=== PATIENT | female | born 1990 | race Caucasian/White ===

== ENCOUNTER → 2018-05-24 11:51 | Outpatient (REF) | payer MEDICAID, SELFPAY ==
[2018-05-24 18:09] LABS: Basophils % 0.5 % (0.1-2.0); Eosinophils # 0.2 K/mm3 (0.0-0.4); Eosinophils % 3.3 % (0.1-12.0); Hematocrit 38.8 % (37.0-47.0); Hemoglobin 12.4 g/dL (12.2-16.2); Lymphocytes % 15.4 K/mm3 (10-50); Mean Corpuscular HGB Conc 31.9 g/dL (31.8-35.4); Mean Corpuscular Volume 100.3 fl (81-99); Mean Platelet Volume 9.2 fl (7.4-10.4); Monocytes # 0.4 K/mm3 (0.1-1.0); Neutrophils # 5.1 K/mm3 (1.8-7.8); Neutrophils % 74.8 % (37.0-80.0); Platelet Count 175 K/mm3 (142-424); Red Blood Count 3.87 M/mm3 (4.20-5.40); Red Cell Distribution Width 12.9 % (11.5-17.5); White Blood Count 6.8 K/mm3 (4.8-10.8)
[2018-05-24 18:48] LABS: Alanine Aminotransferase 20 U/L (12-78); Albumin Level 4.4 gm/dL (3.4-5.0); Albumin/Globulin Ratio 1.6 (1.1-1.8); Alkaline Phosphatase 56 U/L (46-116); Anion Gap 16.7 mEq/L (5-15); Aspartate Amino Transferase 7 U/L (15-37); Bilirubin,Total 0.3 mg/dL (0.2-1.0); Blood Urea Nitrogen 13 mg/dL (7-18); Calcium 9.3 mg/dL (8.5-10.1); Carbon Dioxide 21 mmol/L (21.0-32.0); Chloride 110 mmol/L (98-107); Creatinine,Serum 0.82 mg/dL (0.55-1.02); Estimated Glomerular Filt Rate 82 ml/min (>60); GFR (African American) 100 ML/MIN (>60); Globulin 2.8 gm/dl (1.3-3.2); Glucose 70 mg/dL (74-106); Potassium 3.7 mmoL/L (3.5-5.1); Sodium 144 mmol/L (136-145); T4 (Thyroxine) 7.4 ug/dl (4.7-13.3); Thyroid Stimulating Hormone 2.13 uIU/ml (0.358-3.740); Total Protein,Serum 7.2 gm/dL (6.4-8.2)
[2018-05-24 19:19] LABS: Hemoglobin A1C 4.6 % (0.0-7.0)
[2018-05-27 06:35] LABS: Vitamin D 25 Hydroxy 76.7 ng/mL (30.0-100.0)
== END ==
LOC: LAB 11:51
PROVIDERS: Visit Provider Physician Assistant
DX: F32.9 Major depressive disorder, single episode, unspecified (principal); E55.9 Vitamin D deficiency, unspecified; E11.9 Type 2 diabetes mellitus without complications
CPT/HCPCS: 80053; 82652; 83036; 84436; 84443; 85025

== ENCOUNTER → 2018-11-29 13:31 | Outpatient (CLI) | payer MEDICAID, SELFPAY ==
[2018-11-29 14:34] LABS: Amphetamine/Metha Screen,Urine Negative ng/mL (<1000); Barbiturates Screen,Urine Negative ng/mL (<200); Benzodiazepines Screen,Urine Negative ng/mL (<200); Cannabinoid Screen,Urine Negative ng/mL (<50); Cocaine Screen,Urine Negative ng/mL (<300); Methadone Screen,Urine Negative ng/mL (<300); Opiate Screen,Urine Negative ng/mL (<300); Phencyclidine Screen,Urine Negative ng/mL (<25)
== END ==
PROVIDERS: Visit Provider Nurse Practitioner Family
DX: Z79.899 Other long term (current) drug therapy (principal)
CPT/HCPCS: 80305

== ENCOUNTER → 2020-03-28 16:44 | Outpatient (CLI) | payer MEDICAID, SELFPAY | PROVIDERS: Visit Provider Urology | DX: B37.49 Other urogenital candidiasis (principal) | CPT/HCPCS: 87086; 87088; 87186 ==

== ENCOUNTER → 2020-05-02 16:58 | Outpatient (CLI) | payer MEDICAID, SELFPAY ==
[2020-05-02 17:25] LABS: Basophils % 0.5 % (0.1-2.0); Eosinophils # 0.2 K/mm3 (0.0-0.4); Eosinophils % 2.1 % (0.1-12.0); Hemoglobin 13.9 g/dL (12.2-16.2); Lymphocytes # 1.5 K/mm3 (0.7-4.5); Lymphocytes % 19.5 % (10-50); Mean Corpuscular HGB Conc 34.7 g/dL (31.8-35.4); Mean Corpuscular Hemoglobin 33.1 pg (27.0-31.2); Mean Corpuscular Volume 95.4 fl (81-99); Monocytes # 0.3 K/mm3 (0.1-1.0); Monocytes % 4.6 % (1.7-9.3); Neutrophils # 5.5 K/mm3 (1.8-7.8); Neutrophils % 73.3 % (37.0-80.0); Platelet Count 182 K/mm3 (142-424); Red Blood Count 4.19 M/mm3 (4.20-5.40); Red Cell Distribution Width 12.6 % (11.5-17.5); White Blood Count 7.5 K/mm3 (4.8-10.8)
[2020-05-02 17:31] LABS: Chloride 110 mmol/L (98-107); Potassium 3.9 mmoL/L (3.5-5.1); Sodium 136 mmol/L (136-145)
[2020-05-02 17:34] LABS: Alanine Aminotransferase 12 U/L (12-78); Albumin Level 4.2 g/dl (3.5-5.0); Albumin/Globulin Ratio 1.7 (1.1-1.8); Alkaline Phosphatase 47 U/L (38-126); Anion Gap 11.9 mEq/L (5-15); Aspartate Amino Transferase 24 U/L (14-36); Bilirubin,Total 0.6 mg/dl (0.2-1.3); Blood Urea Nitrogen 12 mg/dl (7-17); Carbon Dioxide 18 mmol/L (22.0-30.0); Cholesterol 118 mg/dl (140-200); Estimated Glomerular Filt Rate 84 ml/min (>60); GFR (African American) 101 ML/MIN (>60); Globulin 2.5 g/dL (1.3-3.2); Total Protein,Serum 6.7 g/dl (6.3-8.2); Triglycerides 40 mg/dl (30-150); VLDL Cholesterol 8 mg/dL (0-40)
[2020-05-02 17:35] LABS: Calcium 9.1 mg/dl (8.4-10.2); Chol/HDL Ratio 2.2 (1-3.5); Glucose 96 mg/dl (74-100); HDL Cholesterol 53 mg/dl (40-60)
[2020-05-02 17:45] LABS: Direct LDL Cholesterol 59.75 mg/dL (100-129)
[2020-05-02 17:52] LABS: T4 (Thyroxine) 7.7 ug/dl (5.53-11.0)
[2020-05-02 18:05] LABS: Thyroid Stimulating Hormone 1.46 uIU/mL (0.465-4.68)
[2020-05-02 19:13] LABS: Hemoglobin A1C 4.9 % (4.0-6.0)
== END ==
PROVIDERS: Visit Provider Physician Assistant
DX: R73.9 Hyperglycemia, unspecified (principal)
CPT/HCPCS: 80053; 80061; 83036; 84436; 84443; 85025

== ENCOUNTER → 2020-11-14 14:23 | Outpatient (CLI) | payer MEDICAID, SELFPAY ==
--- NOTE | 2020-11-14 14:23 | US_ITS ---
PROCEDURE: US TRANSVAGINAL CLINICAL INDICATION: US T/V- DUB Excessive bleeding COMPARISON: No exams were available for comparison FINDINGS: UTERUS: 8cm x 5cmx 4cm with a combined endometrial thickness of 10.6mm LEFT OVARY: [id number] with a volume of 7ml. RIGHT OVARY: [id number] with a volume of 14.4ml. There are nabothian cyst present. There is a small complex cyst within the right ovary 15 x 11 mm which is somewhat irregular with low level echoes. Possibly due to a hemorrhagic cyst. IMPRESSION: 15 mm complex right ovarian cyst. Endometrial stripe upper limits of normal otherwise negative pelvic ultrasound. Dictated by: Ole Cornejo MD 11/14/2020 17:49 Ole Cornejo MD in [facility] 11/14/2020 17:49
--- NOTE | 2020-11-14 14:23 | XR_ITS ---
PROCEDURE: XR DEXA AXIAL SKELETON CLINICAL HISTORY: Dexa Scan- osteopenia COMPARISON: CR BONE3 BONE DENSITOMETRY(HIP:LT SPINE from 02/25/2017 FINDINGS: The right hip BMD is 0.731 with a T-score of -1.7. The left hip BMD is 0.693 with a T-score of -2.0. The lumbar spine BMD is 0.776 with a T-score of -2.5. Previously the lowest bone density was in the AP spine with a T-score -1.8. IMPRESSION: This patient is considered osteoporotic according to the World Health Organization criteria. Fracture risk is high. Treatment is advised. The bone density has decreased compared to the previous exam Based on these results a follow-up exam is recommended in 1 year. Dictated by: Ole Cornejo MD 11/15/2020 11:01 Ole Cornejo MD in [facility] 11/15/2020 11:01
== END ==
PROVIDERS: PCP Emergency Medicine; Visit Provider Obstetrics & Gynecology
DX: N93.8 Other specified abnormal uterine and vaginal bleeding (principal); M85.89 Other specified disorders of bone density and structure, multiple sites
CPT/HCPCS: 76830; 77080

== ENCOUNTER → 2020-12-24 10:36 | Outpatient (CLI) | payer MEDICAID, SELFPAY ==
[2020-12-24 12:07] LABS: HCG,Quantitative 2516 mIU/ml (0-5.42)
== END ==
PROVIDERS: Visit Provider Obstetrics & Gynecology
DX: Z34.90 Encounter for supervision of normal pregnancy, unspecified, unspecified trimester (principal)
CPT/HCPCS: 36415; 84702

== ENCOUNTER → 2020-12-26 12:35 | Outpatient (CLI) | payer MEDICAID, SELFPAY ==
[2020-12-26 13:44] LABS: HCG,Quantitative 6741 mIU/ml (0-5.42)
== END ==
PROVIDERS: Visit Provider Obstetrics & Gynecology
DX: Z34.90 Encounter for supervision of normal pregnancy, unspecified, unspecified trimester (principal)
CPT/HCPCS: 36415; 84702

== ENCOUNTER → 2021-01-14 13:01 | Outpatient (CLI) | payer MEDICAID, SELFPAY ==
--- NOTE | 2021-01-14 13:02 | US_ITS ---
PROCEDURE: US OB <= 14 WEEKS FETUS CLINICAL INDICATION: dates COMPARISON: No exams were available for comparison FINDINGS: An intrauterine gestational sac is present with a pole with a crown-rump length of 1.38cm correlating to gestational age of 7weeks 5days. heart tones are present with an FHR of 161bpm. Yolk sac is noted. 2 cm right ovarian corpus luteum noted. IMPRESSION: Live IUP at 7 weeks 5 days Estimated due date by Ultrasound is 08/28/2021 Dictated by: Ole Cornejo MD 01/15/2021 19:04 Ole Cornejo MD in [facility] 01/15/2021 19:04
== END ==
PROVIDERS: PCP Emergency Medicine; Visit Provider Obstetrics & Gynecology
DX: Z34.90 Encounter for supervision of normal pregnancy, unspecified, unspecified trimester (principal)
CPT/HCPCS: 76801

== ENCOUNTER → 2021-01-16 11:59 | Outpatient (CLI) | payer MEDICAID, SELFPAY ==
[2021-01-16 12:39] LABS: Basophils % 0.4 % (0.1-2.0); Eosinophils # 0.1 K/mm3 (0.0-0.4); Eosinophils % 1.6 % (0.1-12.0); Hemoglobin 13.1 g/dL (12.2-16.2); Lymphocytes # 1.1 K/mm3 (0.7-4.5); Lymphocytes % 13.7 % (10-50); Mean Corpuscular HGB Conc 33.5 g/dL (31.8-35.4); Mean Corpuscular Hemoglobin 31.1 pg (27.0-31.2); Mean Corpuscular Volume 92.9 fl (81-99); Mean Platelet Volume 8.4 fl (7.4-10.4); Monocytes # 0.5 K/mm3 (0.1-1.0); Monocytes % 5.9 % (1.7-9.3); Neutrophils # 6.5 K/mm3 (1.8-7.8); Neutrophils % 78.4 % (37.0-80.0); Platelet Count 167 K/mm3 (142-424); Red Cell Distribution Width 12.4 % (11.5-17.5); White Blood Count 8.3 K/mm3 (4.8-10.8)
[2021-01-16 13:20] LABS: Blood Urea Nitrogen 7 mg/dl (7-17); Calcium 9.5 mg/dl (8.4-10.2); Carbon Dioxide 22 mmol/L (22.0-30.0); Chloride 106 mmol/L (98-107); Estimated Glomerular Filt Rate 97 ml/min (>60); GFR (African American) 117 ML/MIN (>60); Glucose 85 mg/dl (74-100); Sodium 138 mmol/L (136-145)
[2021-01-17 13:01] LABS: HIV Screen 4th Generation wRfx Non Reactive (Non Reactive); Hepatitis B Surface Antigen Negative (Negative); Hepatitis C Antibody <0.1 s/co ratio (0.0-0.9); Rubella Antibodies, IgG 2.84 index (Immune >0.99)
== END ==
PROVIDERS: Visit Provider Obstetrics & Gynecology
DX: Z34.90 Encounter for supervision of normal pregnancy, unspecified, unspecified trimester (principal)
CPT/HCPCS: 36415; 80048; 85025; 86703; 86762; 86850; 87340; 87380; G0432

== ENCOUNTER → 2021-04-10 12:49 | Outpatient (CLI) | payer MEDICAID, SELFPAY ==
--- NOTE | 2021-04-10 12:49 | US_ITS ---
PROCEDURE: US OB >= 14 WEEKS FETUS CLINICAL INDICATION: OB complete COMPARISON: US US OB <= 14 WEEKS FETUS from 01/14/2021 FINDINGS: There is a single live intrauterine gestation which is in breech presentation. heart and body motion is noted. Cervix is closed measuring 4 cm in length. The placenta is anterior in implantation and grade 1. Complete survey performed and was unremarkable on the submitted images as in PACS. No discrete anomalies identified on survey imaging by technologist. Active fetus. Three-vessel cord with satisfactory umbilical cord insertion. 4- chamber heart noted. Survey of brain & ventricles Unremarkable. Face and neck survey unremarkable. Diaphragm and chest views unremarkable. Abdomen: Both kidneys noted and unremarkable. Stomach noted and satisfactory. Spine: Survey of the spine satisfactory with no anomalies identified nor imaged. Both arms and legs noted. Amniotic Fluid: Adequate. Maternal adnexa: No significant findings. Measurements: Average ultrasound age 20weeks 4days. Gestational Age 20weeks Estimated due date by ultrasound age 1008/24/2021. Estimated weight 367g BPD = 20weeks 3days OFD = 21weeks HC = 20weeks AC = 21weeks 1day FL = 20weeks 3days Growth Percentile= 80Percent% Heart Rate = 155bpm Cerebellum = 20weeks 2days Humerus = 20weeks 4days HC/AC is 1.1 CI is 0.76 FL/BPD is 0.7 FL/AC is 0.21 IMPRESSION: Live IUP at 20 weeks 4 days in breech presentation. All parameters correlate with no obvious anomalies. Please see above for detail. Dictated by: Ole Cornejo MD 04/11/2021 08:57 Ole Cornejo MD in [facility] 04/11/2021 08:57
== END ==
PROVIDERS: PCP Emergency Medicine; Visit Provider Obstetrics & Gynecology
DX: Z34.90 Encounter for supervision of normal pregnancy, unspecified, unspecified trimester (principal)
CPT/HCPCS: 76805

== ENCOUNTER → 2021-05-23 09:57 | Outpatient (CLI) | payer MEDICAID, SELFPAY ==
[2021-05-23 10:52] LABS: Basophils % 0.6 % (0.1-2.0); Eosinophils # 0.1 K/mm3 (0.0-0.4); Eosinophils % 1.8 % (0.1-12.0); Hematocrit 34.7 % (37.0-47.0); Hemoglobin 11.9 g/dL (12.2-16.2); Lymphocytes # 1.2 K/mm3 (0.7-4.5); Lymphocytes % 16.9 % (10-50); Mean Corpuscular HGB Conc 34.4 g/dL (31.8-35.4); Mean Corpuscular Hemoglobin 32.2 pg (27.0-31.2); Mean Corpuscular Volume 93.7 fl (81-99); Mean Platelet Volume 8.2 fl (7.4-10.4); Monocytes # 0.4 K/mm3 (0.1-1.0); Monocytes % 5.2 % (1.7-9.3); Neutrophils # 5.5 K/mm3 (1.8-7.8); Neutrophils % 75.6 % (37.0-80.0); Platelet Count 167 K/mm3 (142-424); Red Cell Distribution Width 13.1 % (11.5-17.5); White Blood Count 7.3 K/mm3 (4.8-10.8)
[2021-05-23 10:59] LABS: Glucose,Fasting 90 mg/dl (74-100)
[2021-05-23 13:20] LABS: Glucose 1 Hour 122 mg/dL (74-100)
== END ==
PROVIDERS: Visit Provider Obstetrics & Gynecology
DX: Z34.90 Encounter for supervision of normal pregnancy, unspecified, unspecified trimester (principal)
CPT/HCPCS: 36415; 82951; 85025

== ENCOUNTER → 2021-06-12 12:05 | Outpatient (CLI) | payer MEDICAID, SELFPAY ==
[2021-06-13 11:14] LABS: Rapid Plasma Reagin Ab Titer Non Reactive (NonRea<1:1)
== END ==
PROVIDERS: Visit Provider Obstetrics & Gynecology
DX: Z34.90 Encounter for supervision of normal pregnancy, unspecified, unspecified trimester (principal)
CPT/HCPCS: 86592

== ENCOUNTER → 2021-07-25 15:08 | Outpatient (CLI) | payer MEDICAID, SELFPAY | PROVIDERS: Visit Provider Obstetrics & Gynecology | DX: Z34.90 Encounter for supervision of normal pregnancy, unspecified, unspecified trimester (principal) | CPT/HCPCS: 86403 ==

== ENCOUNTER → 2021-08-23 14:12 | Outpatient (CLI) | payer MEDICAID, SELFPAY | PROVIDERS: PCP Emergency Medicine; Visit Provider Obstetrics & Gynecology | DX: Z11.52 Encounter for screening for COVID-19 (principal) | CPT/HCPCS: C9803; U0003; U0005 ==

== ENCOUNTER 2021-08-25 05:03 | Inpatient (IN) | payer MEDICAID, SELFPAY ==
[2021-08-25 05:09] VITALS: BMI 24.4
[2021-08-25 06:18] VITALS: BP 102/73; PULSE 100; RESP 18; TEMP 36.7; O2SAT 98; BMI 24.4
[2021-08-25 06:32] LABS: Microscopic, Urine URINE MICROSCOPIC (MICROSCOPIC)
[2021-08-25 06:32] LABS: Coronavirus 19, PCR Not Detected (NotDetected); Influenza A, PCR Not Detected (NotDetected); Influenza B, PCR Not Detected (NotDetected)
[2021-08-25 06:44] LABS: Basophils % 0.4 % (0.1-2.0); Eosinophils # 0.1 K/mm3 (0.0-0.4); Eosinophils % 0.8 % (0.1-12.0); Hematocrit 31.7 % (37.0-47.0); Hemoglobin 10.5 g/dL (12.2-16.2); Lymphocytes # 1.3 K/mm3 (0.7-4.5); Lymphocytes % 16.2 % (10-50); Mean Corpuscular Hemoglobin 29.3 pg (27.0-31.2); Mean Corpuscular Volume 88.9 fl (81-99); Mean Platelet Volume 9.6 fl (7.4-10.4); Monocytes # 0.5 K/mm3 (0.1-1.0); Monocytes % 6.8 % (1.7-9.3); Neutrophils # 5.9 K/mm3 (1.8-7.8); Neutrophils % 75.8 % (37.0-80.0); Platelet Count 196 K/mm3 (142-424); Red Blood Count 3.57 M/mm3 (4.20-5.40); Red Cell Distribution Width 13.7 % (11.5-17.5); White Blood Count 7.8 K/mm3 (4.8-10.8)
[2021-08-25 07:06] LABS: Appearance,Urine CLEAR (Clear); Bilirubin,Urine Negative (Negative); Blood, Urine Negative (Negative); Color,Urine YELLOW (Yellow); Glucose,Urine (UA) Negative (Negative); Ketones,Urine Negative (Negative); Leukocyte Esterase,Urine 2+ (Negative); Nitrate,Urine Negative (Negative); PH,Urine 6.5 (5.0-8.5); Protein,Urine TRACE (Negative); Specific Gravity, Urine 1.025 (1.005-1.030); Urobilinogen,Urine 0.2 EU/dl (0.2)
[2021-08-25 07:18] LABS: Amphetamine/Metha Screen,Urine Negative ng/ml (<1000); Benzodiazepines Screen,Urine Negative ng/ml (<200)
[2021-08-25 07:19] LABS: Barbiturates Screen,Urine Negative ng/ml (<200); Methadone Screen,Urine Negative ng/ml (<300)
[2021-08-25 07:20] LABS: Cannabinoid Screen,Urine Negative ng/ml (<50)
[2021-08-25 07:21] LABS: Cocaine Screen,Urine Negative ng/ml (<300); Opiate Screen,Urine Negative ng/ml (<300)
[2021-08-25 07:22] LABS: Phencyclidine Screen,Urine Negative ng/ml (<25)
[2021-08-25 07:59] LABS: Amorphous Sediment,Urine 1+ /lpf
--- NOTE | 2021-08-25 09:18 | HMH.PHAINT ---
MEDICATION RECONCILIATION COMPLETE USING SURESCRIPTS AND PREVIOUS OFFICE VISIT
--- NOTE | 2021-08-25 10:21 | HMH.HP ---
*Admission Date: 08/25/21 *Chief complaint: Induction of labor *History of present illness: 31 yo @ 39 4/ admitted for induction of labor PMH complicated by paget's disease, osteoporosis, depression and mild anemia has been uneventful with good care + tobacco abuse [facility] History I have reviewed the patient's past medical history: Yes Medical History: Reports:: Asthma, Depression, Diabetes Mellitus Type 2, Hypertension, Osteoporosis *Have you ever received a pneumonia vaccine?: No *Have you received a flu vaccine this season?: No Other Medical History: Reports: Osteoporosis Laterality Cases: Bilateral: Tonsillectomy Other Surgeries: Yes: Hernia Repair. No: Amputation: No Fractures: Yes - *Social History Smoking Status: Current some day smoker Tobacco Type: e-cigarettes # Packs/Day (cigarettes): 2 Alcohol Intake: never Substance Use Type: denies use *Occupational Status:: employed Housing: apartment Household Members: family *Travel in the last 8 weeks: None - Psychiatric History Pschychiatric History:: Reports:: Depression Family Hx:: Cancer, Diabetes, Hypertension : 2 Para: 1 Review of Systems - Review of Systems Review of systems:: pertinent systems reviewed and negative unless documented below - *Genitourinary Denies abnormal vaginal bleeding - *Musculoskeletal Reports joint pain Meds Home Medications Medication Instructions Recorded Confirmed Type albuterol sulfate 90 mcg/actuation 2 puff INHALATION Q4H PRN g 12/07/17 08/25/21 History aerosol inhaler metoclopramide HCl 10 mg tablet 10 mg PO Q6H PRN #90 tab 02/27/21 08/25/21 Rx oxybutynin chloride 10 mg 10 mg PO DAILY 02/27/21 08/25/21 History tablet,extended release 24 hr Escitalopram Oxalate 1 tab PO DAILY 08/25/21 08/25/21 History Vit No.130/Iron/Folic 1 tab PO DAILY 08/25/21 08/25/21 History [ Tablet] Allergies Allergy/AdvReac Type Severity Reaction Status Date / Time banana Allergy Unknown Verified 08/21/21 14:42 [From BANANAS (FOOD/DRUG)] Bell And Derivatives Allergy Unknown SWELLING Verified 08/21/21 14:42 [From CITRUS (FOOD/DRUG)] diphenhydramine Allergy Unknown Verified 08/21/21 14:42 [From BENADRYL] ibuprofen [IBUPROFEN] Allergy Unknown Verified 08/21/21 14:42 kiwi [KIWI] Allergy Unknown Verified 08/21/21 14:42 latex [LATEX] Allergy Unknown Verified 08/21/21 14:42 ADHESIVES Allergy Unknown Uncoded 08/21/21 14:42 BENEDRYL Allergy Unknown Uncoded 08/21/21 14:42 From BANANAS (FOOD/DRUG) Allergy Unknown Uncoded 08/21/21 14:42 From CITRUS (FOOD/DRUG) Allergy Unknown SWELLING Uncoded 08/21/21 14:42 Exam Vital signs and Labs for Last 24 Hours: Temp Pulse Resp BP Pulse Ox 98.0 F 100 H 18 102/73 L 98 08/25/21 06:18 08/25/21 06:18 08/25/21 06:18 08/25/21 06:18 08/25/21 06:18 Laboratory Results - last 24 hr 08/25/21 05:15: Urine Color Yellow, Urine Appearance Clear, Urine pH 6.5, Ur Specific [place] 1.025, Urine Protein Trace, Urine Glucose (UA) Negative, Urine Ketones Negative, Urine Blood Negative, Urine Nitrate Negative, Urine Bilirubin Negative, Urine Urobilinogen 0.2, Ur Leukocyte Esterase 2+ A, Urine WBC 5-10, Ur Squamous Epith Cells 10-20, Amorphous Sediment 1+ 08/25/21 05:15: Urine Opiates Screen Negative, Urine Methadone Screen Negative, Ur Barbituates Screen Negative, Ur Phencyclidine Scrn Negative, Ur Amphetamines Screen Negative, U Benzodiazepines Scrn Negative, Urine Cocaine Screen Negative, U Marijuana (THC) Screen Negative 08/25/21 05:45: WBC 7.8, RBC 3.57 L, Hgb 10.5 L, Hct 31.7 L, MCV 88.9, MCH 29.3, MCHC 33.0, RDW 13.7, Plt Count 196, MPV 9.6, Neut % (Auto) 75.8, Lymph % (Auto) 16.2, Roberts % (Auto) 6.8, Eos % (Auto) 0.8, Baso % (Auto) 0.4, Neut # (Auto) 5.9, Lymph # (Auto) 1.3, Roberts # (Auto) 0.5, Eos # (Auto) 0.1, Baso # (Auto) 0.0 08/25/21 05:45: Blood Type O Positive, Antibody Screen Negative 08/25/21 05:45: SARS-CoV-2
--- NOTE | 2021-08-25 11:08 | HMH.ANESCL ---
[facility] Anesthesia Checklist - Patient Identification Patient Identification: Arm Band - Structural Data Admitted From: Inpatient Planned Operative Procedure/s: labor epidural Consent for Planned Operative Procedure(s) Verified: Yes Verified Documents: Surgical Consent, History and Physical - NPO Status Verified Time NPO: 00:00 - Additional verifications Anesthesia Reactions: No - Airway Assessment C-Spine Mobility Assessed: Yes TMJ Mobility Assessed: Yes Dentition: Good Dentition - Neurological Assessment Level of Consciousness: Awake, Alert - Anesthesia Plan Anesthesia Risk discussed: Yes Anesthesia Plan: Verified ASA Class: II Anesthesia Type: Epidural [facility] History I have reviewed the patient's past medical history: Yes Medical History: Reports:: Asthma, Depression, Diabetes Mellitus Type 2, Hypertension, Osteoporosis *Have you ever received a pneumonia vaccine?: No *Have you received a flu vaccine this season?: No Other Medical History: Reports: Osteoporosis Anesthesia experience/problems:: nac Laterality Cases: Bilateral: Tonsillectomy Other Surgeries: Yes: Hernia Repair. No: Amputation: No Fractures: Yes - *Social History Smoking Status: Current some day smoker Tobacco Type: e-cigarettes # Packs/Day (cigarettes): 2 Alcohol Intake: never Substance Use Type: denies use *Occupational Status:: employed Housing: apartment Household Members: family *Travel in the last 8 weeks: None - Psychiatric History Pschychiatric History:: Reports:: Depression Family Hx:: Cancer, Diabetes, Hypertension Para: 1
--- NOTE | 2021-08-25 16:39 | P.PCN_ITS ---
- Delivery Note Delivery Date:: 08/25/21 Delivery Time:: 15:24 Anesthesia Type: Epidural Was labor medically induced?: Yes Induction method: per pitocin protocol Gestational age (weeks): 39 delivered prior to 39 weeks?: No Gender: Male at 1 minute: 8 at 5 minutes: 9 LAC or MLE?: LAC Delivery Procedure:: Procedure: Vacuum-Assisted Vaginal Delivery Limited progress with spontaneous pushing due to maternal exhaustion Outlet vacuum applied in standard fashion Vacuum-assisted vaginal delivery of liveborn male over intact perineum Delivery accomplished with focus puller 2 contractions Delivery uncomplicated No nuchal cord; no shoulder dystocia with delivery Infant placed in [place]SHA[place] with mother immediately after umbilical cord clamped/cut, with standard nursing assessment performed Infant Apgars: 8 & 9 Placenta spontaneously expressed and examined; noted to be complete/intact. Vulva, vagina, and cervix inspected; second degree perineal laceration repaired with 2-0 vicryl in layers EBL: 300 cc All sponge/needle/instrument counts correct at conclusion of procedure Disposition: Mom/baby stable to recovery in [facility]DRP Laceration:: vaginal Placental Delivery Description: Spontaneous
[2021-08-25 19:27] VITALS: BP 104/62; PULSE 108; RESP 18; TEMP 37.2; O2SAT 96
[2021-08-26 00:37] VITALS: BP 103/71; PULSE 115; RESP 18; TEMP 36.7
[2021-08-26 04:25] VITALS: BP 100/62; PULSE 78; RESP 18; TEMP 36.8; O2SAT 98
[2021-08-26 06:36] LABS: Hematocrit 31.1 % (37.0-47.0)
[2021-08-26 08:15] VITALS: BP 110/65; PULSE 93; RESP 20; TEMP 36.7; O2SAT 100
--- NOTE | 2021-08-26 20:23 | HMH.ACPN2 ---
Internal Medicine - PN: Subj *Date: 08/26/21 *Time: 09:23 Interval history: PPD #1 no unusual complaints tolerating regular diet ambulating and voiding without difficulty lochia appropriate Exam Vital signs and Labs for Last 24 Hours: Temp Pulse Resp BP Pulse Ox 98.1 F 93 H 20 110/65 100 08/26/21 08:15 08/26/21 08:15 08/26/21 08:15 08/26/21 08:15 08/26/21 08:15 Laboratory Results - last 24 hr 08/26/21 06:08: Hgb 10.0 L, Hct 31.1 L I & O for Last 24 hours: Intake & Output 08/24/21 08/25/21 08/26/21 08/27/21 11:59 11:59 11:59 11:59 Weight 180 lb Microbiology Reports for the Last 24 Hours: Microbiology 08/25/21 05:15 Urine,Clean Catch Urine Culture - Preliminary Narrative: CONSTITUTIONAL: no acute distress HEENT: mucous membranes moist PULMONARY: breathing unlabored without audible wheezes CV: no tachycardia or visible JVD; normal LE peripheral pulses ABD: soft, NT/ND, no guarding : fundus firm at/below umbilicus SKIN: no visible rash or lesions EXT: 1+ edema LEs NEURO: alert/oriented, no altered mental status PSYCH: appropriate mood and demeanor Assessment and Plan (1) 39 weeks gestation of Status: Acute Category: Medical Code(s): Z3A.39 - 39 weeks gestation of (2) Anemia affecting Status: Acute Category: Medical Code(s): O99.019 - Anemia complicating , unspecified trimester (3) Vapes nicotine containing substance Status: Acute Category: Social Hx Code(s): Z72.0 - Tobacco use - Assessment and plan all Dx Assessment and Plan for all problems:: routine care anticipate discharge home tomorrow
[2021-08-27 08:00] VITALS: BP 104/64; PULSE 58; RESP 20; TEMP 36.7; O2SAT 99
--- NOTE | 2021-08-27 09:54 | SW/DCPLANNER ---
I received a referral on this patient regarding: making sure patient has everything she needs and father having a past history/does not have custody of other child. During my visit today with this patient infants father (Treasure Weaver 07/13/84) was present. male (Vamsi Weaver) was born on [birth year]. Patient stated that herself, Treasure, and other child (Partha Pace 04/19/03) will reside at [address] [place] [address] in [place] [address]. Patients contact number is [phone]. Patient stated that she is not established with [facility] but is going to look into it at discharge. Patient stated that she has everything she needs at home including: crib, carseat, clothing, diapers and formula .Patient has no further needs at this time. Patients nurse (Kathryn) stated that patient is appropriate with infant. Patient is expected to discharge home later today.
--- NOTE | 2021-08-27 12:40 | HMH.DCSUM ---
General - General Admission date:: 08/25/21 Discharge date: 08/27/21 HPI HPI: 31 yo @ 39 4 admitted for induction of labor PMH complicated by paget's disease, osteoporosis, depression and mild anemia has been uneventful with good care + tobacco abuse Hospital Course Hospital Course: Hospital course uneventful Tolerating regular diet Ambulating and voiding without difficulty Asymptomatic with [id number] anemia Discharged home on PPD #2 in stable condition Rhogam Administration: Not Indicated Objective Vital signs: Temp Pulse Resp BP Pulse Ox 98.1 F 58 L 20 104/64 L 99 08/27/21 08:00 08/27/21 08:00 08/27/21 08:00 08/27/21 08:00 08/27/21 08:00 Narrative: CONSTITUTIONAL: no acute distress HEENT: mucous membranes moist PULMONARY: breathing unlabored without audible wheezes CV: no tachycardia or visible JVD; normal LE peripheral pulses ABD: soft, NT/ND, no guarding : fundus firm at/below umbilicus SKIN: no visible rash or lesions EXT: 1+ edema LEs NEURO: alert/oriented, no altered mental status PSYCH: appropriate mood and demeanor DS: Diagnosis - Discharge Diagnosis (1) 39 weeks gestation of Status: Acute (2) Anemia affecting Status: Acute (3) Vapes nicotine containing substance Status: Acute (4) Vacuum-assisted vaginal delivery Status: Acute Discharge Plan - Patient Discharge Instructions ACTIVITY: Continue current activity DIET: regular diet Additional Instructions: No heavy lifting, no strenuous activity and nothing in the vagina for 6 weeks Patient Instructions: Depression, Hemorrhage, DI for Labor and Delivery, Vaginal , DI for Pre-eclampsia, [facility] Post Discharge Instructions, Preventing the Spread of Coronavirus Discharge Instructions - Follow up Plan Follow up with: Kathryn Rizo MD [Staff Physician] - 10/07/21 10:15 am Disposition: Home, Self-Care Condition at discharge:: Stable Home Medications: Home Medications Medication Instructions Recorded Confirmed Type albuterol sulfate 90 mcg/actuation 2 puff INHALATION Q4H PRN g 12/07/17 08/25/21 History aerosol inhaler metoclopramide HCl 10 mg tablet 10 mg PO Q6H PRN #90 tab 02/27/21 08/25/21 Rx oxybutynin chloride 10 mg 10 mg PO DAILY 02/27/21 08/25/21 History tablet,extended release 24 hr Escitalopram Oxalate 20 mg PO DAILY 08/25/21 08/26/21 History Vit No.130/Iron/Folic 1 tab PO DAILY 08/25/21 08/25/21 History [ Tablet] Prescriptions/Medication Reconciliation: New Acetaminophen [Acetaminophen 325mg tab] 650 mg PO Q4HP PRN tablet PRN Reason: Mild Pain Continued albuterol sulfate 90 mcg/actuation aerosol inhaler 2 puff INHALATION Q4H PRN g PRN Reason: NEEDED metoclopramide HCl 10 mg tablet 10 mg PO Q6H PRN #90 tab PRN Reason: nausea and vomiting oxybutynin chloride 10 mg tablet,extended release 24 hr 10 mg PO DAILY Vit No.130/Iron/Folic [ Tablet] 1 tab PO DAILY Escitalopram Oxalate 20 mg PO DAILY - Problem Reconciliation Problems Reviewed?: Yes
== END 2021-08-27 15:08 | disposition home or self-care (01) | DRG 807 ==
PROVIDERS: Admitting Provider Obstetrics & Gynecology; PCP Emergency Medicine; Visit Provider Obstetrics & Gynecology
DX: O99.02 Anemia complicating childbirth (principal); Z37.0 Single live birth; O99.334 Smoking (tobacco) complicating childbirth; F17.290 Nicotine dependence, other tobacco product, uncomplicated; O99.344 Other mental disorders complicating childbirth; F32.A Depression, unspecified; O70.1 Second degree perineal laceration during delivery; Z3A.39 39 weeks gestation of pregnancy
CPT/HCPCS: 59409; 36415; 59025; 80305; 81001; 85014; 85018; 85025; 86850; 87086; 94761; C1758; C9803; G0283; U0003; U0005